=== PATIENT | female | born 1950 | race Caucasian/White ===

== ENCOUNTER 2021-07-09 12:00 | Outpatient (RCR) | payer MEDICARE, SELFPAY ==
--- NOTE | 2021-07-09 13:44 | REHOPWC ---
SEATING EVALUATION NOTIFICATION This is to notify provider that Sharon Olivarez participated in a power scooter mobility device evaluation today. Recommendations were made specific to patient's needs. Seating Assessment documentation has been completed for detailed information on required equipment. The mobility device provider for this case is Rossana. Please note that no further care plan will be developed on this account. Thank you for referring this patient to [facility]. Please review, sign, date and return this discharge summary YARITZA. I have been updated about the patient's current status and I agree with discharge from the above service at this time. Referring Physician Date
== END 2021-09-25 12:48 | disposition home or self-care (01) ==
LOC: ANHPT 12:00
PROVIDERS: PCP Internal Medicine; Referring Provider Internal Medicine; Visit Provider Internal Medicine
DX: R26.2 Difficulty in walking, not elsewhere classified (principal)
CPT/HCPCS: 97163

== ENCOUNTER 2023-04-22 08:05 | Outpatient (CLI) | payer MEDICARE, SELFPAY | END 2023-04-22 08:06 | disposition home or self-care (01) | PROVIDERS: PCP Internal Medicine; Visit Provider Internal Medicine | DX: H93.13 Tinnitus, bilateral (principal) | CPT/HCPCS: 92557; 92567 ==

== ENCOUNTER 2023-10-13 14:58 | Emergency (ER) | payer MEDICARE, SELFPAY ==
--- NOTE | ~2023-10-13 | XR_ITS ---
EXAM: XR shoulder RT min 2V DATE: 10/13/2023 16:04 HISTORY: pain . COMPARISON: None available. FINDINGS: Decreased mineralization. No fracture or dislocation. No lytic or blastic lesion. Mild deg enerative change at the AC joint and glenohumeral joint. No erosion or periosteal change. Soft tissue s within normal limits. IMPRESSION: No acute osseous finding in the right shoulder. Reviewed, dictated and finalized at location K.
[2023-10-13 15:08] VITALS: BP 132/56; PULSE 60; RESP 18; TEMP 36.9; O2SAT 98
--- NOTE | 2023-10-13 16:21 | ED.GENADULT ---
HPI - General Adult General Chief complaint: Extremity Injury, Upper Stated complaint: Right shoulder injury Time Seen by Provider: 10/13/23 16:01 Source: patient, RN notes reviewed and old records reviewed Mode of arrival: ambulatory Limitations: no limitations History of Present Illness HPI narrative: 73-year-old female to [facility] for complaint of right shoulder pain for 1 week. Patient reports a week ago while attempting to exit her fence the gate opened to fast and she lost her balance causing her to fall onto her right side. Patient states that pain has varied from 3-9 and radiates into the hand intermittently. Patient has attempted to treat at home with Tylenol. No swelling or bruising noted. Patient denies weakness, numbness, tingling, prior injury. Patient in no acute distress. Related Data Home Medications Medication Instructions Recorded Confirmed allopurinol 100 mg tablet 100 mg PO DAILY 07/05/21 10/13/23 atorvastatin 20 mg tablet 20 mg PO QHS 07/05/21 10/13/23 blood-glucose meter 07/05/21 09/27/21 chlorthalidone 25 mg tablet 25 mg PO DAILY 07/05/21 10/13/23 cyanocobalamin (vitamin B-12) 1,000 mcg sublingual .monthy 07/05/21 10/13/23 1,000 mcg sublingual tablet diltiazem HCl 180 mg 180 mg PO DAILY 07/05/21 10/13/23 tablet,extended release 24 hr (Cardizem LA) ergocalciferol (vitamin D2) 50,000 unit PO 07/05/21 09/27/21 unit tablet ferrous sulfate 325 mg (65 mg 325 mg PO DAILY 07/05/21 10/13/23 iron) tablet,delayed release furosemide 40 mg tablet (Lasix) 40 mg PO DAILY 07/05/21 10/13/23 gabapentin 100 mg tablet 100 mg PO QHS 07/05/21 10/13/23 hydralazine 50 mg tablet 50 mg PO BID 07/05/21 10/13/23 insulin glargine 100 unit/mL 40 unit subcut BID 07/05/21 10/13/23 subcutaneous solution (Lantus U-100 Insulin) insulin lispro protamine-lispro 20 unit subcut QAM 07/05/21 10/13/23 100 unit/mL (50-50) subcutaneous pen insulin syringe-needle U-100 0.5 07/05/21 09/27/21 mL 31 gauge x 5/16 (Easy Comfort Insulin Syringe) levothyroxine 137 mcg tablet 137 mcg PO DAILY 07/05/21 10/13/23 lisinopril 40 mg tablet 40 mg PO DAILY 07/05/21 10/13/23 mv-min-vit C 1,000 ea PO 07/05/21 09/27/21 ee-sycltiobh-ehiaze-herb 124 50 mg efferves tablet (Air Protector) ondansetron HCl 4 mg tablet 4 mg PO Q4H 07/05/21 09/27/21 insulin lispro 200 unit/mL (3 mL) 30 unit subcut QACDINNER 09/27/21 10/13/23 subcutaneous pen (Humalog KwikPen U-200 Insulin) ondansetron 4 mg disintegrating 4 mg PO Q8H 09/27/21 10/13/23 tablet Allergies Allergy/AdvReac Type Severity Reaction Status Date / Time CODIENLeroy,CILLINS Allergy Mild RED FACE Uncoded 07/25/22 10:45 Review of Systems Review of Systems: All systems reviewed & are unremarkable except as noted in HPI and below Constitutional: Constitutional: Reports no additional constitutional complaints Eyes: Eyes: Reports no additional eye complaints ENT: Reports system reviewed and no additional complaints, except as documented Cardiovascular: Cardiovascular: Reports no additional cardiovascular complaints, Denies chest pain and Denies dyspnea Respiratory: Respiratory: Reports no additional respiratory complaints, Denies cough and Denies dyspnea Musculoskeletal: Musculoskeletal: Reports no additional musculoskeletal complaints Neurologic: Reports system reviewed and no additional complaints, except as documented Psychiatric: Psychiatric: Reports no additional psychiatric complaints [facility] Past Medical History Medical History Allergies Arthritis Asthma Cataract fragments in right eye following surgery Diabetes Generalized osteoarthritis of multiple sites Inflammatory arthritis Irritable bowel disease Kidney disease Thyroid disorder Surgical History Surgical History H/O foot surgery H/O knee surgery Family History Family History
== END 2023-10-13 16:30 | disposition home or self-care (01) ==
PROVIDERS: Emergency Provider Nurse Practitioner Family; PCP Internal Medicine
DX: S46.911A Strain of unspecified muscle, fascia and tendon at shoulder and upper arm level, right arm, initial encounter (principal); W19.XXXA Unspecified fall, initial encounter; J45.909 Unspecified asthma, uncomplicated; E11.9 Type 2 diabetes mellitus without complications; Z79.4 Long term (current) use of insulin; M15.9 Polyosteoarthritis, unspecified
CPT/HCPCS: 73030; 99213; G0463

== ENCOUNTER 2024-02-13 11:36 | Emergency (ER) | payer MEDICARE, SELFPAY ==
--- NOTE | ~2024-02-13 | XR_ITS ---
XR lumbar spine 2-3V 02/13/2024 12:29 Indication: Status post fall. Back pain. Procedure: 3 views lumbar spine Comparison: No prior studies for comparison. Findings: There is disc narrowing at L3-4 and L4-5. There is multilevel facet hypertrophy. No fractur e or traumatic malalignment. Pedicles intact. Sacral foramen are symmetric. Impression: 1: Moderate lumbar spondylosis. Reviewed, dictated and finalized at location B. Impression: 1: Moderate lumbar spondylosis.
[2024-02-13 11:45] VITALS: BP 136/53; PULSE 81; RESP 18; TEMP 36.8; O2SAT 98
--- NOTE | 2024-02-13 11:49 | ED.FALL ---
HPI - Fall General Chief Complaint: Fall Stated Complaint: Fall Injury/Left Hip/Right Knee Source: patient Mode of arrival: ambulatory Limitations: no limitations History of Present Illness HPI Narrative: 73 y/o female with diabetes presented for c/o pain in the left hip and right knee after a fall 2 days ago. Pain is worse in the hip with certain movements, described as a stabbing pain. Pt has been using a wheeled walker for support. Takes Tylenol Arthritis BID. Says she was seen by her diabetes doctor this morning who told her she should get looked at. Pt is unsure how she fell exactly, states she struck one side of the face on a screen door but does not think she fell to the ground, and did not fall on her hip. Denies pain radiating into the legs, numbness, tingling, weakness of the lower extremities, or change in gait, saddle paresthesia or loss of bowel or bladder. Related Data Home Medications Medication Instructions Recorded Confirmed allopurinol 100 mg tablet 100 mg PO DAILY 07/05/21 10/13/23 atorvastatin 20 mg tablet 20 mg PO QHS 07/05/21 10/13/23 blood-glucose meter 07/05/21 09/27/21 chlorthalidone 25 mg tablet 25 mg PO DAILY 07/05/21 10/13/23 cyanocobalamin (vitamin B-12) 1,000 mcg sublingual .monthy 07/05/21 10/13/23 1,000 mcg sublingual tablet diltiazem HCl 180 mg 180 mg PO DAILY 07/05/21 10/13/23 tablet,extended release 24 hr (Cardizem LA) ergocalciferol (vitamin D2) 50,000 unit PO 07/05/21 09/27/21 unit tablet ferrous sulfate 325 mg (65 mg 325 mg PO DAILY 07/05/21 10/13/23 iron) tablet,delayed release furosemide 40 mg tablet (Lasix) 40 mg PO DAILY 07/05/21 10/13/23 gabapentin 100 mg tablet 100 mg PO QHS 07/05/21 10/13/23 hydralazine 50 mg tablet 50 mg PO BID 07/05/21 10/13/23 insulin glargine 100 unit/mL 40 unit subcut BID 07/05/21 10/13/23 subcutaneous solution (Lantus U-100 Insulin) insulin lispro protamine-lispro 20 unit subcut QAM 07/05/21 10/13/23 100 unit/mL (50-50) subcutaneous pen insulin syringe-needle U-100 0.5 07/05/21 09/27/21 mL 31 gauge x 5/16 (Easy Comfort Insulin Syringe) levothyroxine 137 mcg tablet 137 mcg PO DAILY 07/05/21 10/13/23 lisinopril 40 mg tablet 40 mg PO DAILY 07/05/21 10/13/23 mv-min-vit C 1,000 ea PO 07/05/21 09/27/21 um-yzcveuwed-dgbbyz-herb 124 50 mg efferves tablet (Air Protector) ondansetron HCl 4 mg tablet 4 mg PO Q4H 07/05/21 09/27/21 insulin lispro 200 unit/mL (3 mL) 30 unit subcut QACDINNER 09/27/21 10/13/23 subcutaneous pen (Humalog KwikPen U-200 Insulin) ondansetron 4 mg disintegrating 4 mg PO Q8H 09/27/21 10/13/23 tablet Allergies Allergy/AdvReac Type Severity Reaction Status Date / Time LASHAWN HAMILTON Allergy Mild RED FACE Uncoded 07/25/22 10:45 Review of Systems Review of Systems: CONSTITUTIONAL: Denies body aches, fever, chills CARDIOVASCULAR: Denies chest pain, palpitations, or edema. RESPIRATORY: Denies cough or dyspnea. GASTROINTESTINAL: Denies abdominal pain, nausea, vomiting, or diarrhea. SKIN: Denies wounds. MUSCULOSKELETAL: Reports left hip pain, right knee pain NEUROLOGIC: Denies headache, numbness, tingling, or weakness. All systems reviewed & are unremarkable except as noted in HPI and below PMFSH Past Medical History Medical History Allergies Arthritis Asthma Cataract fragments in right eye following surgery Diabetes Generalized osteoarthritis of multiple sites Inflammatory arthritis Irritable bowel disease Kidney disease Thyroid disorder Surgical History Surgical History H/O foot surgery H/O knee surgery Family History Family History Father Diabetes mellitus Hypertension Mother Hypertension Diabetes mellitus Thyroid disorder Sibling Hypertension Diabetes mellitus Grandparent Diabetes mellitus Hyper
== END 2024-02-13 13:10 | disposition home or self-care (01) ==
PROVIDERS: Emergency Provider Nurse Practitioner Family; PCP Internal Medicine
DX: M54.16 Radiculopathy, lumbar region (principal); E11.9 Type 2 diabetes mellitus without complications; W19.XXXA Unspecified fall, initial encounter
CPT/HCPCS: 72100; 99213; G0463